=== PATIENT | female | born 1970 | race Two or more races ===

== ENCOUNTER 2018-05-07 07:45 | Outpatient (CLI) | payer OTHER | END 2018-05-07 07:47 | disposition home or self-care (01) | LOC: SONOGRAMA 07:45 | DX: E04.2 Nontoxic multinodular goiter (principal) ==

== ENCOUNTER → 2019-11-28 07:37 | Outpatient (CLI) | payer BC, OTHER | END | disposition home or self-care (01) | LOC: LAB 07:37 | DX: E11.65 Type 2 diabetes mellitus with hyperglycemia (principal); E56.8 Deficiency of other vitamins; E04.2 Nontoxic multinodular goiter ==

== ENCOUNTER 2019-11-28 08:06 | Outpatient (CLI) | payer OTHER | END 2019-11-28 08:11 | disposition home or self-care (01) | LOC: SONOGRAMA 08:06 | DX: E04.2 Nontoxic multinodular goiter (principal) ==

== ENCOUNTER 2022-01-11 06:47 | Outpatient (CLI) | payer OTHER | END 2022-01-11 07:44 | disposition home or self-care (01) | LOC: LAB 06:47 | PROVIDERS: ATTEND Obstetrics & Gynecology Gynecology | DX: N92.5 Other specified irregular menstruation (principal); N94.0 Mittelschmerz; N95.1 Menopausal and female climacteric states; K85.90 Acute pancreatitis without necrosis or infection, unspecified; E88.81 Metabolic syndrome and other insulin resistance; I10 Essential (primary) hypertension; E03.9 Hypothyroidism, unspecified; N39.0 Urinary tract infection, site not specified; R19.09 Other intra-abdominal and pelvic swelling, mass and lump; R79.0 Abnormal level of blood mineral; E11.9 Type 2 diabetes mellitus without complications; R94.7 Abnormal results of other endocrine function studies; E78.00 Pure hypercholesterolemia, unspecified; E55.9 Vitamin D deficiency, unspecified; N97.8 Female infertility of other origin; D27.9 Benign neoplasm of unspecified ovary ==